=== PATIENT | male | born 1980 | race Caucasian/White ===

== ENCOUNTER 2020-08-08 07:37 | Outpatient (CLI) | payer SELFPAY ==
--- NOTE | 2020-08-08 08:00 | USCV_ITS ---
Erik Barajas Age: 40 Gender: M : 1980 Exam Date: 08/08/2020 08:04 Ordering Phys: Irina Wells Technologist: Vandana Ku Exam Location: [facility] – [place], [place]_ Indication: UNCONTROLLED HTN Risk Factors: Previous Vascular Surgery: Right Brachial BP: / Left Brachial BP: / Right Left Velocity (cm/s) Spectral Plaque Velocity (cm/s) Spectral Plaque Syst/Diast Broadening Syst/Diast Broadening 65.30/ 19.40 Prox CCA 85.20 / 27.50 76.10/ 24.10 Mid CCA 72.40 / 24.70 66.00/ 24.10 Distal CCA 59.00 / 21.80 33.60/ 14.20 Prox ICA 63.10 / 16.00 29.70/ 16.80 Mid ICA 33.20 / 16.90 29.50/ 11.40 Distal ICA 36.30 / 15.30 95.50 ECA 87.00 0.44 ICA/CCA 0.87 Antegrade Vertebral Antegrade 25.60/ 6.40 cm/s 31.20/ 11.10 cm/s Tri Subclavian Tri 44.40 59.40 FINDINGS Comparison: none available. No significant elevation of systolic or diastolic velocities. Waveforms are normal. No significant amount of calcified plaque or intimal thickening identified. CONCLUSIONS Normal carotid doppler ultrasound. Dr. Emy English DO (Electronically Signed) Final Date: 08 August 2020 08:40 S
--- NOTE | 2020-08-08 09:30 | USCV_ITS ---
Erik Barajas Age: 40 Gender: M : 1980 Exam Date: 08/08/2020 08:13 Ordering Phys: Irina Wells Technologist: Vandana Ku Exam Location: [facility] – [place], [place]_ Indication: UNCONTROLLED HTN Aortic Velocity @ SMA (cm/s) 65.5 RIGHT KIDNEY LEFT KIDNEY Velocity (cm/s) Velocity (cm/s) Sys/Mccord Sys/Mccord Resistive Index Resistive Index 45.8 / 26.9 0.41 Proximal Renal Artery 71.1 / 33.8 0.52 51.9 / 26.9 0.48 Mid Renal Artery 85.6 / 44.2 0.48 37.7 / 12.1 0.68 Distal Renal Artery 51.8 / 31.1 0.40 48.9 / 29.2 0.40 Hilar 34.5 / 12.4 0.64 37.2 / 23.4 0.37 Upper Pole 35.7 / 21.9 0.39 24.2 / 13.1 0.46 Mid Pole 18.4 / 10.0 0.46 34.4 / 19.4 0.44 Lower Pole 21.2 / 11.8 0.44 0.80 Renal Aortic Ratio 1.31 Accleration Index (cm/sec2) 407.00 Hilar 639.00 380.00 Upper Pole 276.00 382.00 Mid Pole 218.00 718.00 Lower Pole 321.00 95.5 Kidney Length (mm) 102.9 FINDINGS No evidence of abdominal aortic aneurysm. There is no evidence of hemodynamically significant right renal artery stenosis. There is no evidence of hemodynamically significant left renal artery stenosis. CONCLUSIONS No hemodynamically significant renal artery stenosis bilaterally. Dr. Emy English DO (Electronically Signed) Final Date: 08 August 2020 08:42 S
== END 2020-08-08 07:38 | disposition home or self-care (01) ==
LOC: RAD 07:47
PROVIDERS: Visit Provider Nurse Practitioner Family
DX: I10 Essential (primary) hypertension (principal)
CPT/HCPCS: 93880; 93975

== ENCOUNTER → 2020-10-31 10:47 | Outpatient (BNVA) | payer SELFPAY | PROVIDERS: Visit Provider Nurse Practitioner | DX: M79.605 Pain in left leg (principal) | CPT/HCPCS: 73562 ==